=== PATIENT | male | born 1975 | race Caucasian/White ===

== ENCOUNTER 2021-05-21 13:20 | Emergency (ER) | payer OTHER ==
[~2021-05-21] VITALS: Ht 165.1 cm; Wt 77.1 kg
[2021-05-21 13:21] VITALS: BP 116/81
[2021-05-21] MEDS ORDERED: MOBIC7.5 MG PO (13:42)
[2021-05-21] MEDS ORDERED: DOXYCYCLINE 10100 MG PO (13:42)
== END 2021-05-21 13:42 | disposition home or self-care (01) ==
LOC: ER 13:20
DX: L02.11 Cutaneous abscess of neck (principal); Z91.011 Allergy to milk products; Z88.5 Allergy status to narcotic agent

== ENCOUNTER 2021-05-22 00:11 | Emergency (ER) | payer OTHER ==
[~2021-05-22] VITALS: Ht 165.1 cm; Wt 77.1 kg
[~2021-05-22 00:11] MED LIST: DOXYCYCLINE 10100 MG PO; MOBIC7.5 MG PO
[2021-05-22 00:18] VITALS: BP 139/89
== END 2021-05-22 00:57 | disposition home or self-care (01) ==
LOC: ER 00:11
DX: L02.11 Cutaneous abscess of neck (principal); Z88.5 Allergy status to narcotic agent; Z91.011 Allergy to milk products

== ENCOUNTER → 2021-07-28 | Emergency (ER) | payer OTHER ==
[~2021-07-28] VITALS: Ht 165.1 cm; Wt 73.5 kg
[2021-07-28 08:05] VITALS: BP 134/76
== END ==
LOC: ER 08:00
DX: M79.642 Pain in left hand (principal); F12.90 Cannabis use, unspecified, uncomplicated; Z53.21 Procedure and treatment not carried out due to patient leaving prior to being seen by health care provider; Z79.1 Long term (current) use of non-steroidal anti-inflammatories (NSAID); Z79.899 Other long term (current) drug therapy; Z88.5 Allergy status to narcotic agent; Z91.011 Allergy to milk products